=== PATIENT | female | born 1960 | race Hispanic/Latino ===

== ENCOUNTER → 2018-04-17 | Outpatient (REF) | payer MEDICARE, OTHER ==
[~2018-04-17] MED LIST: ASPIRIN LOW DOS81 M2 PO; ASPIRIN325 MG PO; AUGMENTIN500TAB PO; CETIRIZ/PSE1 TAB PO; DYAZIDE1 CAP OR; FISH OIL1000 MG PO; K-DUR/KLOR-CON10 MEQ OR; LEVOTHROID150 MCG PO; LEVOTHYROXIN100 MC1 PO; LEVOTHYROXIN100 MCG PO; LEVOTHYROXIN125 MC1 PO; LEVOTHYROXIN150 MCG PO; LEVOTHYROXIN175 MCG PO; LEVOTHYROXIN200 MC2 PO; LEVOTHYROXIN75 MCG PO; LEVOTHYROXIN88 MC1 PO; MAXZIDE-2537.5 MG/TA PO; MEDDOSEPAK PO; MULTI VIT PO; NAPROXEN500 MG PO; PLAVIX75 MG; SIMVASTATIN20 MG PO; SYNTHROID75 MCG OR; TRAMADOL HCL50 MG PO; TRIAM/HCTZ1 CAP PO; TRIAMT/HCTZ1 TAB PO; ULTRAM50 M1 PO; ZETIA10 MG OR; ZOCOR20 MG PO; [UNRECOGNIZED DRUG - CODE] PO
[2018-04-17 10:14] LABS: HEMATOCRIT 48.8 % (37.0-47.0); HEMOGLOBIN 16.2 g/dl (12.0-16.0); IMMATURE GRANULOCYTES 0.4 % (0.0-5.0); MEAN CELL VOLUME 102.1 fL CALC (80.0-100.0); MEAN CORPUSCULAR HGB 33.9 pG CALC (26.0-32.0); MEAN CORPUSCULAR HGB CONC 33.2 g/L CALC (32.0-36.0); NEUT# 4.58 thou/uL (2.00-7.15); RED BLOOD COUNT 4.78 mill/uL (4.20-5.60); RED CELL DISTRI WIDTH 11.9 % (11.5-15.5)
[2018-04-17 10:50] LABS: ALBUMIN 4.2 g/dL (3.2-5.0); ANION GAP 16 (6-22 (CALC)); BILIRUBIN, TOTAL 0.6 mg/dL (0.0-1.4); BUN 18 mg/dL (7-17); BUN/CREATININE RATIO 31 (12-20 (CALC)); CALCULATED LDLCHOLESTEROL 51 mg/dL (62-129 (CALC)); CARBON DIOXIDE 34 mmol/l (22-30); CHLORIDE 95 mmol/l (95-108); CREATININE 0.6 mg/dL (0.5-1.0); GFR > 60 ML/MIN (>=60 (CALC)); GFR FOR AFR.AMER. > 60 ML/MIN (>=60 (CALC)); HDL CHOLESTEROL 46 mg/dL (>=40); POTASSIUM 3.7 mmol/l (3.5-5.1); SGOT/AST 25 u/l (14-36); SODIUM 141 mmol/l (137-146); TOTAL CHOLESTEROL 139 mg/dl (0-199); TOTAL PROTEIN 7.2 g/dL (6.3-8.2); TOTAL TRIGLYCERIDES 212 mg/dl (30-149); VLDL CHOLESTROL 42 mg/dl (2-49 (CALC))
[2018-04-17 10:51] LABS: ALKALINE PHOSPHATASE 93 u/l (38-126)
[2018-04-17 11:19] LABS: TSH, 3RD GENERATION 4.95 uIU/mL (0.47 - 4.68)
== END | disposition home or self-care (01) ==
LOC: LAB 09:14
PROVIDERS: ATTEND Nurse Practitioner Family
DX: E03.9 Hypothyroidism, unspecified (principal); R73.9 Hyperglycemia, unspecified; E78.2 Mixed hyperlipidemia; I10 Essential (primary) hypertension